=== PATIENT | female | born 1980 | race African-American/Black ===

== ENCOUNTER 2017-08-12 10:00 | Inpatient (IN) | payer BC ==
[2017-08-12] VITALS (13 sets, daily range): BP systolic 110–130; BP diastolic 65–83
[2017-08-12 12:00] LABS: EOSINOPHIL (%) 1.1 % (0-5); EOSINOPHIL COUNT 0.1 K/uL (0-0.3); HEMATOCRIT 35.3 % (36.0-46.0); IMMATURE GRANULOCYTE (%) 0.8 % (0.0-0.7); IMMATURE GRANULOCYTE COUNT 0.1 K/uL; INSTRUMENT ABS NEUTROPHIL CT 8.5 K/uL; LYMPHOCYTE COUNT 1.3 K/uL (1.0-2.8); MCH 27.5 PG (29.0-34.0); MCHC 33.1 G/DL (30.0-36.0); MCV 82.9 FL (83-99); MONOCYTE (%) 5.9 % (3-12); MONOCYTE COUNT 0.6 K/uL (0-0.8); NEUTROPHIL (%) 80.2 % (45-76); NEUTROPHIL COUNT 8.5 K/uL (1.8-6.4); PLATELET COUNT 264 K/uL (156-360); RBC DIS.WIDTH-CV 15.5 % (11.8-14.6); RED BLOOD COUNT 4.26 M/uL (3.80-5.20); WHITE BLOOD COUNT 10.6 K/uL (4.1-10.2)
[2017-08-12] MEDS ORDERED: EXPECTA PRENAT1 EACH PO (12:43)
[2017-08-12] MEDS ORDERED: ASPIRIN81 M2 PO (12:43)
[2017-08-13] VITALS (8 sets, daily range): BP systolic 108–121; BP diastolic 58–81
[2017-08-13 02:19] LABS: POINT-OF-CARE METER ID UU13113675
[2017-08-13 11:37] LABS: HEMATOCRIT 33.7 % (36.0-46.0); MCH 27.9 PG (29.0-34.0); MCHC 33.2 G/DL (30.0-36.0); MEAN PLAT.VOLUME 10.4 uM^3 (9.5-12.4); PLATELET COUNT 242 K/uL (156-360); RBC DIS.WIDTH-CV 15.2 % (11.8-14.6); RBC DIS.WIDTH-SD 46.2 % (39-53); RED BLOOD COUNT 4.01 M/uL (3.80-5.20)
[2017-08-14 02:59] VITALS: BP 113/57
[2017-08-14 07:23] VITALS: BP 113/58
[2017-08-14 09:03] LABS: EOSINOPHIL (%) 1.2 % (0-5); EOSINOPHIL COUNT 0.1 K/uL (0-0.3); HEMATOCRIT 30.6 % (36.0-46.0); IMMATURE GRANULOCYTE (%) 0.6 % (0.0-0.7); IMMATURE GRANULOCYTE COUNT 0.1 K/uL; INSTRUMENT ABS NEUTROPHIL CT 8.4 K/uL; LYMPHOCYTE COUNT 1.3 K/uL (1.0-2.8); MCH 28.6 PG (29.0-34.0); MCHC 33.7 G/DL (30.0-36.0); MEAN PLAT.VOLUME 10.6 uM^3 (9.5-12.4); MONOCYTE (%) 3.7 % (3-12); MONOCYTE COUNT 0.4 K/uL (0-0.8); NEUTROPHIL (%) 81.9 % (45-76); NEUTROPHIL COUNT 8.4 K/uL (1.8-6.4); PLATELET COUNT 240 K/uL (156-360); RBC DIS.WIDTH-CV 15.8 % (11.8-14.6); RBC DIS.WIDTH-SD 48.8 % (39-53); WHITE BLOOD COUNT 10.2 K/uL (4.1-10.2)
[2017-08-14 10:45] VITALS: BP 107/60
[2017-08-14 14:59] VITALS: BP 123/82
[2017-08-14 19:46] VITALS: BP 120/66
[2017-08-14 22:58] VITALS: BP 122/77
[2017-08-15 03:28] VITALS: BP 124/76
[2017-08-15 07:32] VITALS: BP 120/72
[2017-08-15 10:43] VITALS: BP 156/86
[2017-08-15 14:38] VITALS: BP 138/76
[2017-08-15 18:56] VITALS: BP 121/65
[2017-08-15 20:15] VITALS: BP 132/68
[2017-08-16 03:11] VITALS: BP 127/62
[2017-08-16 07:38] VITALS: BP 113/68
[2017-08-16] MEDS ORDERED: IBUPROFEN800 MG PO (09:29)
[2017-08-16] MEDS ORDERED: ENDOCET 5-3251 EACH PO (09:29)
[2017-08-16] MEDS ORDERED: DOCUSATE SODIU100 MG PO (09:29)
[2017-08-16 10:14] VITALS: BP 121/71
[2017-08-16 15:07] VITALS: BP 127/72
== END 2017-08-16 18:30 | disposition home or self-care (01) | DRG 765 ==
LOC: LDRP-OP → 2WEST 10:01 → LDRP-OP 09-10 13:09
PROVIDERS: Advanced Practice Midwife; Obstetrics & Gynecology; Obstetrics & Gynecology Obstetrics
PROC: 3E033VJ Introduction of Other Hormone into Peripheral Vein, Percutaneous Approach (ICD-10-PCS; principal; 2017-08-12)
PROC: 3E0P7VZ Introduction of Hormone into Female Reproductive, Via Natural or Artificial Opening (ICD-10-PCS; principal; 2017-08-12)
PROC: 10D00Z1 Extraction of Products of Conception, Low, Open Approach (ICD-10-PCS; 2017-08-13)
DX: O76 Abnormality in fetal heart rate and rhythm complicating labor and delivery (principal); O69.81X0 Labor and delivery complicated by cord around neck, without compression, not applicable or unspecified; O24.420 Gestational diabetes mellitus in childbirth, diet controlled; O10.92 Unspecified pre-existing hypertension complicating childbirth; O99.02 Anemia complicating childbirth; D62 Acute posthemorrhagic anemia; O41.03X0 Oligohydramnios, third trimester, not applicable or unspecified; Z3A.40 40 weeks gestation of pregnancy; Z37.0 Single live birth; O99.824 Streptococcus B carrier state complicating childbirth; O99.214 Obesity complicating childbirth; E66.9 Obesity, unspecified; Z68.31 Body mass index [BMI] 31.0-31.9, adult; O99.843 Bariatric surgery status complicating pregnancy, third trimester; O34.13 Maternal care for benign tumor of corpus uteri, third trimester
CPT/HCPCS: 82948; 85025; 85027; 86850; 86900; 86901; 88307; G0378; J0690; J2274; J2405; J2540; J2590; J2765; J7040; J7120